=== PATIENT | female | born 1965 | race Caucasian/White ===

== ENCOUNTER 2018-06-10 06:15 | Day surgery (SDC) | payer BC ==
[2018-06-10] MEDS ORDERED: LACTATED RINGERS 1,000 ML ONE (06:54)
[2018-06-10] MEDS ORDERED: PROPOFOL 200 MG/20 ML VIAL IV ONE (07:00)
[2018-06-10] MEDS ORDERED: LIDOCAINE 1% 10 ML VIAL INJ ONE (07:00)
[2018-06-10] MEDS ORDERED: fentaNYL CITRATE INJ 50 MCG/ML AMP ONE (08:14)
[2018-06-10 08:55] VITALS: BP 102/66; TEMP 96.4; O2SAT 92
--- NOTE | 2018-06-10 09:01 | OP ---
DATE OF PROCEDURE: 06/10/18 PREOPERATIVE DIAGNOSIS: 1. Colorectal cancer screening in average risk individual. POSTOPERATIVE DIAGNOSIS: 1. Colonic polyps. 2. Internal hemorrhoids. PROCEDURE: 1. Colonoscopy with polypectomy. SURGEON: Rusty Diane MD ANESTHESIA: Monitored anesthesia care. LAST COLONOSCOPY: No prior colonoscopy. ESTIMATED BLOOD LOSS: Less than 5 mL. COMPLICATIONS: None. PROCEDURE: The patient was placed in the left lateral decubitus position. A time-out was performed. After deep sedation was achieved, the adult Olympus colonoscope was inserted through the anus and into the rectum and advanced to the cecum without difficulty under direct visualization. The terminal ileum was intubated. The cecum was identified by the ileocecal valve and the appendiceal orifice, photodocumentation of each location was performed. Retroflexion was performed in the right colon and cecum. The endoscope was then progressively withdrawn and the total colonic lumen evaluated. Retroflexion was performed in the rectum. The endoscope was then withdrawn and the procedure terminated. The patient tolerated the procedure well with no immediate complications. FINDINGS: 1. One sessile polyp measuring 5 mm was seen in the transverse colon. This polyp was removed with the cold snare and retrieved for pathology. 2. One sessile polyp measuring 4 mm was seen in the descending colon. This polyp was completely removed with the cold snare and retrieved for pathology. 3. One sessile polyp was seen in the sigmoid colon measuring 3 mm. This polyp was removed with a cold snare and retrieved for pathology. 4. Grade 2 non-bleeding internal hemorrhoids were seen in the rectum upon retroflexion. IMPRESSION: 1. Colonic polyps status post polypectomies. 2. Non-bleeding internal hemorrhoids. RECOMMENDATIONS: 1. Okay to discharge home once the patient meets discharge criteria. 2. Resume prior diet. 3. Resume home medications. 3. Repeat colonoscopy in 3 to 5 years depending on pathology results. 4. Followup with referring physician as needed. #[id number] MTDD
== END 2018-06-10 09:15 | disposition home or self-care (01) ==
LOC: AMB 06:15 → EDSTATUS 10:26
PROVIDERS: ATTEND Internal Medicine Gastroenterology
DX: Z12.11 Encounter for screening for malignant neoplasm of colon (principal); D12.3 Benign neoplasm of transverse colon; D12.4 Benign neoplasm of descending colon; D12.5 Benign neoplasm of sigmoid colon; K64.1 Second degree hemorrhoids; E66.9 Obesity, unspecified; Z88.5 Allergy status to narcotic agent; Z88.8 Allergy status to other drugs, medicaments and biological substances
CPT/HCPCS: 00812; 45385; J3010; J3490; J7120

== ENCOUNTER 2019-04-05 10:11 | Emergency (ER) | payer BC ==
[2019-04-05] MEDS ORDERED: ONDANSETRON INJ 4 MG/2 ML VIAL IV ONE ×3 (10:43→13:48)
[2019-04-05] MEDS ORDERED: SODIUM CHLORIDE 0.9% 1000ML 1,000 ML IVS ONE ×2 (10:43→14:03)
--- NOTE | 2019-04-05 10:47 | ED.PDOC ---
History of Present Illness - General Chief Complaint: GI Problem Stated Complaint: vomiting Time Seen by Provider: 04/05/19 10:35 Information Source: patient, family - History of Present Illness Initial Comments: 53 yo F with PMH sig for HLD who presents for diarrhea onset 12 days ago, nausea and NB vomiting onset this morning with associated epigastric pain, pain is constant, non radiating, onset 12 days ago. Hx of gastric ulcer at 15 yr old, determined to be from "a hard home life." Reports todays pain does not feel similar. Only abd surgery has been partial hysterectomy. Pt was seen by PCP and given shot of phenergan and sent home without prescriptions, sx continued. They did obtain stool studies however pt states they called a couple of days ago and still did not have the results. Today she felt so ill and with generalized weakness, she presented to ED. Denies sick contacts, recent travel. Denies f/c, cough, CP, SOB, melena, hematochezia. Review of Systems - Review of Systems Constitutional: Denies: chills, fever EENTM: States: no symptoms reported Respiratory: Denies: cough, short of breath Cardiology: Denies: chest pain, edema, palpitations Gastrointestinal/Abdominal: States: abdominal pain, diarrhea, nausea, vomiting, other - Denies hematemsis, melena, hematochezia.. Denies: constipation Genitourinary: Denies: dysuria, frequency, hematuria Musculoskeletal: Denies: back pain, neck pain Skin: Denies: change in color, rash Neurological: States: weakness - generalized weakness. Denies: numbness Hematologic/Lymphatic: Denies: easy bleeding, easy bruising Past Medical History (General) - Patient Medical History Hx Stroke: No Hx Congestive Heart Failure: Yes Hx Diabetes: No Hx MRSA: No Surgical History: tonsillectomy, Hysterectomy - Vaccination History Hx Tetanus, Diphtheria Vaccination: Yes Hx Influenza Vaccination: No - Social History Hx Tobacco Use: No Family Medical History - Family History Mother Brother Family History: Unknown Physical Exam - Physical Exam General Appearance: Well Developed, Well Nourished Eyes, Ears, Nose, Throat Exam: other - Dry. No scleral icterus. Neck: full range of motion, supple Respiratory: lungs clear, normal breath sounds, no respiratory distress, no accessory muscle use Cardiovascular/Chest: normal peripheral pulses, regular rate, rhythm, no edema, no gallop, no JVD, no murmur Peripheral Pulses: No deficit Gastrointestinal/Abdominal: soft, no organomegaly, no pulsatile mass - Epigastric TTP. No distention, rebound, gaurding, hernia. Extremity: normal range of motion, no pedal edema Neurologic: no motor/sensory deficits, oriented x 3 Skin Exam: other - No rash., pallor Progress - Progress Progress: 04/05/19 11:35 Rechecked, doing well. Nausea and pain improved but still present, will give more zofran and a dose of toradol. 04/05/19 12:35 Pt reports she is feeling much better, will try and obtain stool sample results from [facility]. LFT's still pending. CT scan consistent with diarrheal state. 04/05/19 13:49 Pt complaining on 9 pain and nausea, will give morphine and zofran. Discussed with lab, LFT's will not result for 2 hours however c diff will only take 30 min. 04/05/19 14:02 Discussed with pt results thus far. Offered admission, pt declines and would like to be d/c. In that case, discussed need to wait for LFT and c diff results. Pt and family agree with plan. 04/05/19 17:23 I have explained and reviewed all results with the pt. Pain well controlled, mansoor po. Pt anxious for d/c, pt and feel comfortable with d/c home. I explained that emergent conditions may arise and to return to the ER for new, worsening, or any persistent conditions. I've explained the importance of f/u for recheck. All questions and concerns addressed at this time. Pt understands and agrees with plan. Pt well appearing, NAD, is stable for discharge. Coleen Harris MD Emergency Medicine Physician Billing Number [id number] - Results/Orders Results/Orders: Outside stool sample: Negatice for shiga toxin, E coli, Salmonella and shigella. 04/05/19 10:44 Hold Metformin x 48Hrs [id number] 04/05/19 10:45 EKG STAT 04/05/19 13:10 STOOL CULTURE Stat 04/05/19 13:41 CRYPTOSPORIDIA AG,STOOL Stat NOROVIRUS,EIA STOOL Stat Laboratory Results - last 24 hr 04/05/19 04/05/19 04/05/19 10:40 10:40 11:15 WBC 17.0 H RBC 5.64 H Hgb 16.3 H Hct 50.2 H MCV 88.9 MCH 28.8 MCHC 32.4 L RDW 14.5 Plt Count 281 MPV 8.9 Absolute Neuts (auto) 14.60 H Absolute Lymphs (auto) 1.90 Absolute Monos (auto) 0.30 Absolute Eos (auto) 0.10 Absolute Basos (auto) 0.10 Neutrophils % 85.8 H Lymphocytes % 11.2 L Monocytes % 2.0 Eosinophils % 0.4 L Basophils % 0.6 Sodium 138 Potassium 3.5 L Chloride 98 L Carbon Dioxide 24 Anion Gap Cancelled BUN 8 Creatinine 0.60 BUN/Creatinine Ratio Cancelled Random Glucose 70 Serum Osmolality Cancelled Calcium Cancelled Total Bilirubin < 0.2 L Direct Bilirubin 0.1 Indirect Bilirubin 0.1 L AST 24 ALT 26 Alkaline Phosphatase 106 Serum Total Protein 8.3 H Albumin 4.6 Globulin Cancelled Albumin/Globulin Ratio Cancelled Lipase 37 Urine Color Yellow Urine Appearance Clear Urine pH 5.0 Ur Specific [place] >= 1.030 Urine Protein Negative Urine Glucose (UA) Negative Urine Ketones Negative Urine Blood Trace-lysed H Urine Nitrite Negative Urine Bilirubin Negative Urine Urobilinogen 0.2 Ur Leukocyte Esterase Negative Urine RBC 0-1 Urine WBC 1-3 Ur Epithelial Cells 1-3 Amorphous Sediment Trace Urine Bacteria 1+ Urine Mucus Trace EXAM DESCRIPTION: CT ABDOMEN AND PELVIS WITH CONTRAST CLINICAL HISTORY: abd pain COMPARISON: None Available. TECHNIQUE: CT of the abdomen and pelvis are performed during IV bolus administration of routine adult dose of nonionic iodinated IV contrast. No oral contrast. FINDINGS: In the lower chest, the lung bases are clear. Heart size is normal. CT abdomen The liver, spleen, pancreas, gallbladder, adrenal glands, stomach and kidneys are normal in appearance. No inflammation around the pancreas. No renal stones or hydronephrosis. The amount of fluid in the small bowel is prominent although the bowel does not appear pathologically dilated to suggest obstruction. There is fluid throughout the colon which may indicate diarrheal illness or recent enema administration. Clinical correlation recommended. No free air or free fluid. CT pelvis Appendix appears normal. No inflammation around the cecum or terminal ileum or sigmoid colon. Fluid filled colon and rectum. Bladder and distal ureters are negative for stones. Normal enhancement of pelvic vessels. No inguinal or lower pelvic adenopathy. Uterus and right ovary are surgically absent. Left ovary is not enlarged. Bone window images are negative for fracture or lytic lesion. Coronal and sagittal reformatted images confirm the findings. IMPRESSION: Increased fluid in the small bowel and colon. See above. This exam was performed according to our departmental dose-optimization program, which includes automated exposure control, adjustment of the mA and/or kV according to patient size and/or use of iterative reconstruction technique. Total DLP equals 1078.98 mGycm. Electronically signed by: Adolph Lezama MD 04/05/2019 12:15 PM CDT - EKG/XRAY/CT EKG: Sinus, no ST T wave changes Comments: NSR, rate 80 Departure - Departure Clinical Impression: Nausea vomiting and diarrhea Abdominal pain Qualifiers: Abdominal location: generalized Qualified Code(s): R10.84 - Generalized abdominal pain Time of Disposition: 17:10 Disposition: Discharge to Home or Self Care Health Concerns: Condition: Stable Departure Forms: ED Discharge - Pt. Copy, Patient Portal Self Enrollment Instructions: DI for Abdominal Pain-Adult, Viral Gastroenteritis, Adult (DC) Referrals: REBECCA JACOBO MD [Primary Care Provider] - 1-2 Days Prescriptions: Ondansetron Tab [Zofran Tab] 4 mg PO Q6HR PRN #12 tab PRN Reason: Nausea RX: Ciprofloxacin 500 mg PO BID 5 Days #10 arley metroNIDAZOLE [Flagyl] 500 mg PO TID 5 Days #15 tab Home Medications: Ambulatory Orders Acetaminophen [Tylenol] 500 mg PO PRN PRN 06/09/18 Cetirizine-Pseudoephedrine [Zyrtec-D Allergy/[place]] 1 tab PO PRN PRN 06/09/18 Ibuprofen [Advil] 400 mg PO PRN PRN 06/09/18 Ondansetron Tab [Zofran Tab] 4 mg PO Q6HR PRN #12 tab 04/05/19 RX: Ciprofloxacin 500 mg PO BID 5 Days #10 arley 04/05/19 metroNIDAZOLE [Flagyl] 500 mg PO TID 5 Days #15 tab 04/05/19 Additional Instructions: Follow up: [facility] As needed, if symptoms worsen Gastroenterology Make appointment, two days, for follow up
[2019-04-05 11:34] VITALS: TEMP 96.4
[2019-04-05] MEDS ORDERED: KETOROLAC TROMETHAMINE INJ 30 MG/ML VIAL IV ONE (11:34)
--- NOTE | 2019-04-05 12:16 | CT ---
EXAM DESCRIPTION: CT ABDOMEN AND PELVIS WITH CONTRAST CLINICAL HISTORY: abd pain COMPARISON: None Available. TECHNIQUE: CT of the abdomen and pelvis are performed during IV bolus administration of routine adult dose of nonionic iodinated IV contrast. No oral contrast. FINDINGS: In the lower chest, the lung bases are clear. Heart size is normal. CT abdomen The liver, spleen, pancreas, gallbladder, adrenal glands, stomach and kidneys are normal in appearance. No inflammation around the pancreas. No renal stones or hydronephrosis. The amount of fluid in the small bowel is prominent although the bowel does not appear pathologically dilated to suggest obstruction. There is fluid throughout the colon which may indicate diarrheal illness or recent enema administration. Clinical correlation recommended. No free air or free fluid. CT pelvis Appendix appears normal. No inflammation around the cecum or terminal ileum or sigmoid colon. Fluid filled colon and rectum. Bladder and distal ureters are negative for stones. Normal enhancement of pelvic vessels. No inguinal or lower pelvic adenopathy. Uterus and right ovary are surgically absent. Left ovary is not enlarged. Bone window images are negative for fracture or lytic lesion. Coronal and sagittal reformatted images confirm the findings. IMPRESSION: Increased fluid in the small bowel and colon. See above. This exam was performed according to our departmental dose-optimization program, which includes automated exposure control, adjustment of the mA and/or kV according to patient size and/or use of iterative reconstruction technique. Total DLP equals 1078.98 mGycm. Electronically signed by: Adolph Lezama MD 04/05/2019 12:15 PM CDT
[2019-04-05] MEDS ORDERED: MORPHINE SULFATE INJ 10 MG/ML VIAL IV ONE (13:48)
[2019-04-05 16:45] VITALS: O2SAT 94
[2019-04-05 17:34] VITALS: BP 114/64
== END 2019-04-05 17:35 | disposition home or self-care (01) ==
LOC: ER 10:11
DX: R19.7 Diarrhea, unspecified (principal); R11.2 Nausea with vomiting, unspecified; R10.84 Generalized abdominal pain; I50.9 Heart failure, unspecified; Z87.11 Personal history of peptic ulcer disease; Z90.79 Acquired absence of other genital organ(s)
CPT/HCPCS: 74177; 80048; 80076; 81001; 83690; 85025; 87015; 87045; 87046; 87272; 87324; 87449; 93005; J1885; J2270; J2405; J7030

== ENCOUNTER 2020-05-21 16:21 | Emergency (ER) | payer BC, OTHER ==
--- NOTE | 2020-05-21 17:35 | RAD ---
EXAM DESCRIPTION: Hand,Left 3 Views CLINICAL HISTORY: fall 3 days ago with pain COMPARISON: None FINDINGS: AP, lateral and oblique views of the left hand were submitted. There is no discrete acute fracture or dislocation. Bone mineralization is within normal limits. There is no radiopaque foreign body material IMPRESSION: No acute fracture or dislocation Electronically signed by: Richardson Pichardo MD 05/21/2020 5:34 PM [facility]
--- NOTE | 2020-05-21 17:36 | RAD ---
EXAM DESCRIPTION: Hip, left 2 Views (accession [id number]), Pelvis (accession [id number]) CLINICAL HISTORY: 55 years Female fall 3 days ago with pain COMPARISON: None. TECHNIQUE: AP pelvis and two views of the left hip. FINDINGS: No acute fractures or dislocations are identified. No osseous destructive lesions. There are surgical clips in the left pelvis. IMPRESSION: No acute fracture is identified. CT or MRI could be obtained to better evaluate if there is continued clinical concern. Electronically signed by: Fidencio Segovia MD 05/21/2020 5:34 PM [facility]
--- NOTE | 2020-05-21 17:36 | RAD ---
EXAM DESCRIPTION: Hip, left 2 Views (accession [id number]), Pelvis (accession [id number]) CLINICAL HISTORY: 55 years Female fall 3 days ago with pain COMPARISON: None. TECHNIQUE: AP pelvis and two views of the left hip. FINDINGS: No acute fractures or dislocations are identified. No osseous destructive lesions. There are surgical clips in the left pelvis. IMPRESSION: No acute fracture is identified. CT or MRI could be obtained to better evaluate if there is continued clinical concern. Electronically signed by: Fidencio Segovia MD 05/21/2020 5:34 PM [facility]
--- NOTE | 2020-05-21 17:41 | RAD ---
EXAM DESCRIPTION: Knee,Left Complete CLINICAL HISTORY: fall 3 days ago with pain COMPARISON: None FINDINGS: AP, lateral and oblique views of the left knee were submitted. There is subtle cortical irregularity involving the lateral aspect of the lateral tibial epicondyles, uncertain acuity no other acute bony abnormality detected. Bone mineralization is within normal limits. There is no suprapatellar joint fluid collection IMPRESSION: Subtle age-indeterminate irregularity along the posterior lateral at the left tibial condyle. Small avulsion fracture of the lateral capsular ligament is a concern. Recommend MRI for additional characterization for possible internal derangement. Electronically signed by: Richardson Pichardo MD 05/21/2020 5:40 PM [facility]
--- NOTE | 2020-05-21 17:42 | RAD ---
EXAM DESCRIPTION: Scapula,Left CLINICAL HISTORY: 55 years Female fall 3 days ago with pain COMPARISON: None. TECHNIQUE: LEFT SCAPULA two view FINDINGS: No acute fractures or dislocations identified. No osseous destructive lesions. Acromioclavicular joint appears maintained. IMPRESSION: No acute fracture or dislocation identified. Electronically signed by: Luz Elena Segovia MD 05/21/2020 5:40 PM [facility]
--- NOTE | 2020-05-21 17:43 | RAD ---
EXAM DESCRIPTION: Shoulder,Left 2 or More Views CLINICAL HISTORY: 55 years Female fall 3 days ago with pain COMPARISON: None. TECHNIQUE: LEFT SHOULDER two view FINDINGS: No acute fractures or dislocations identified. No osseous destructive lesions. Acromioclavicular joint appears maintained. IMPRESSION: No acute fracture or dislocation identified. Electronically signed by: Luz Elena Segovia MD 05/21/2020 5:41 PM [facility]
[2020-05-21 18:07] VITALS: BP 136/80
--- NOTE | 2020-05-21 18:27 | CT ---
EXAM DESCRIPTION: Lower Extremity CLINICAL HISTORY: 55 years Female left knee, xray irreg tib COMPARISON: None. TECHNIQUE: Contiguous axial CT images obtained through the left knee without IV contrast. Reformatted images obtained. This exam was performed according to our department optimization program which includes automated exposure control, adjustment of the mA and/or kv according to patient size and/or use of iterative reconstruction technique. FINDINGS: Mild lateral patellar tilt. No acute fracture. No joint effusion. Small area along the lateral aspect of the tibial metaphysis described on the plain films appears to represent an area of normal bony architecture. IMPRESSION: No acute abnormality identified. Electronically signed by: Luz Elena Segovia MD 05/21/2020 6:26 PM [facility]
--- NOTE | 2020-05-21 18:36 | ED.PDOC ---
History of Present Illness - General Chief Complaint: Trauma Stated Complaint: L shoulder, L hip and L knee pain r/t fall Time Seen by Provider: 05/21/20 16:33 Source: patient Exam Limitations: no limitations - History of Present Illness Initial Comments: The patient is a 55-year-old female presents emergency room secondary to left- sided pain from a fall that she sustained. Apparently the patient was unloading boxes and her pants snagged on a palate then she fell backwards and to the left, trying to catch herself with her arm. The patient has pain in the left shoulder, the left thumb, the left hip and the left knee. There are no palpable deformities. Range of motion appears grossly preserved though there is pain with movement of the left knee hip and shoulder. She has tenderness to palpation over the left acromioclavicular joint. She has to palpation over the supraspinatus and infraspinatus muscles on the left clavicle. She has mild tenderness to palpation over the lateral pectoralis muscle. No visible bruising in this area. Active and passive range of motion are preserved though active range of motion does cause some pain. X-ray left hip shows full range of motion. There is mostly discomfort to palpation over the area of impact. Strength is preserved here. Examination of left knee shows tenderness to palpation of the lateral aspect. There is not appear to be any laxity of the knee joint itself and no exacerbation of pain with testing of the ligaments. There is mild bruise to the lateral aspect. Strength appears to be grossly preserved. She appears to be neurovascularly at her baseline distally. Timing/Duration: other - About 3 days Severity: moderate Improving Factors: immobilization Worsening Factors: movement Associated Symptoms: denies symptoms Allergies/Adverse Reactions: Allergies Cephalexin Allergy (Verified 06/09/18 11:20) Codeine Allergy (Verified 06/09/18 11:20) Tetanus Toxoids Allergy (Verified 05/21/20 16:52) Home Medications: Ambulatory Orders Acetaminophen [Tylenol] 500 mg PO PRN PRN 06/09/18 Cetirizine-Pseudoephedrine [Zyrtec-D Allergy/Congesti] 1 tab PO PRN PRN 06/09/18 Ibuprofen [Advil] 400 mg PO PRN PRN 06/09/18 Cyclobenzaprine HCl [Flexeril] 5 mg PO TID PRN #20 tab 05/21/20 Furosemide Tab [Lasix Tab] 40 mg PO PRN PRN 05/21/20 predniSONE [Prednisone] 20 mg PO DAILY #5 tab 05/21/20 Review of Systems - Review of Systems Constitutional: States: no symptoms reported EENTM: States: no symptoms reported Respiratory: States: no symptoms reported Cardiology: States: no symptoms reported Gastrointestinal/Abdominal: States: no symptoms reported Genitourinary: States: no symptoms reported Musculoskeletal: States: see HPI Skin: States: no symptoms reported Neurological: States: no symptoms reported Endocrine: States: no symptoms reported Hematologic/Lymphatic: States: no symptoms reported All other Systems: No Change from Baseline Past Medical History (General) - Patient Medical History Hx Stroke: No Hx of COPD: No Hx Cardiac Disorders: No Hx Congestive Heart Failure: Yes Hx Hypertension: No Hx Diabetes: No Hx Cancer: No Hx MRSA: No Surgical History: Hysterectomy, other - Vaccination History Hx Tetanus, Diphtheria Vaccination: Yes Hx Influenza Vaccination: No Hx Pneumococcal Vaccination: No - Social History Hx Tobacco Use: No Hx Alcohol Use: Yes Hx Substance Use: No Hx Substance Use Treatment: No Hx Depression: No - Female History Patient is a Female of Child Bearing Age (10 -59 yrs old): Yes Patient : No Family Medical History - Family History Mother Brother Family History: Unknown Hx Family Hypertension: Yes Hx Family Diabetes: Yes Physical Exam - Physical Exam General Appearance: Alert, No apparent distress Eye Exam: bilateral normal Ears, Nose, Throat: hearing grossly normal, normal pharynx Neck: non-tender, full range of motion Respiratory: no respiratory distress, no accessory muscle use Cardiovascular/Chest: normal peripheral pulses, no edema Peripheral Pulses: radial,right: 2+, radial,left: 2+, dorsalis pedis,right: 2+, dorsalis pedis,left: 2+ Gastrointestinal/Abdominal: non tender, soft Rectal Exam: deferred Back Exam: no CVA tenderness, no vertebral tenderness, other - See history of present illness Extremity: normal range of motion, no pedal edema, no calf tenderness, normal capillary refill, other - See history of present illness 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 The patient has primarily sustained myofascial strain of the left shoulder including the supraspinatus and infraspinatus muscles on the left. Additionally there is a mild strain of the lateral pectoralis muscle. She also appears to have strained the left acromioclavicular joint. No evidence of fracture or dislocation. The patient also appears to have bruised the left hip and the left knee with the fall. X-rays are reassuring. The patient does need to do light duty over the coming week to prevent further injury to herself. The patient will be written for a low-dose muscle relaxer as well as oral steroid to help reduce inflammation. She can use [id number] anti-inflammatories as well. Paperwork has been filled out for her work. ER warnings are given. flor nickerson [phone] - Results/Orders Results/Orders: X-ray of the left hip, pelvis, and left hand, left scapula, left shoulder are negative. X-ray of the knee shows a possible loose calcified body that could indicate a small fracture. CT scan of the knee without contrast showed no evidence of any acute pathology. Departure - Departure Clinical Impression: Fall Qualifiers: Encounter type: initial encounter Qualified Code(s): W19.XXXA - Unspecified fall, initial encounter Left shoulder strain Qualifiers: Encounter type: initial encounter Qualified Code(s): S46.912A - Strain of unspecified muscle, fascia and tendon at shoulder and upper arm level, left arm, initial encounter Superficial bruising of hip Qualifiers: Encounter type: initial encounter Traumatic ecchymosis of knee Qualifiers: Encounter type: initial encounter Laterality: left Qualified Code(s): S80.02XA - Contusion of left knee, initial encounter Disposition: Discharge to Home or Self Care Condition: Fair Departure Forms: ED Discharge - Pt. Copy, Patient Portal Self Enrollment Instructions: DI for Trauma, Shoulder Pain (DC) Diet: regular diet Activity: other Referrals: Charles Nickerson MD [Primary Care Provider] - 1-2 Weeks Prescriptions: Cyclobenzaprine HCl [Flexeril] 5 mg PO TID PRN #20 tab PRN Reason: Muscle Spasms predniSONE [Prednisone] 20 mg PO DAILY #5 tab Home Medications: Ambulatory Orders Acetaminophen [Tylenol] 500 mg PO PRN PRN 06/09/18 Cetirizine-Pseudoephedrine [Zyrtec-D Allergy/Congesti] 1 tab PO PRN PRN 06/09/18 Ibuprofen [Advil] 400 mg PO PRN PRN 06/09/18 Cyclobenzaprine HCl [Flexeril] 5 mg PO TID PRN #20 tab 05/21/20 Furosemide Tab [Lasix Tab] 40 mg PO PRN PRN 05/21/20 predniSONE [Prednisone] 20 mg PO DAILY #5 tab 05/21/20 Additional Instructions: The patient is a 55-year-old female that fell around 3 days ago while at work. The patient has primarily sustained myofascial strain of the left shoulder including the supraspinatus and infraspinatus muscles on the left. Additionally there is a mild strain of the lateral pectoralis muscle. She also appears to have strained the left acromioclavicular joint. No evidence of fracture or dislocation. The patient also appears to have bruised the left hip and the left knee with the fall. X-rays are reassuring. The patient does need to do light duty over the coming week to prevent further injury to herself. The patient will be written for a low-dose muscle relaxer as well as oral steroid to help reduce inflammation. She can use [id number] anti-inflammatories as well. Range of motion exercises and topical heat may also prove beneficial symptomatically. Paperwork has been filled out for her work. ER warnings are given.
[2020-05-21] MEDS ORDERED: CYCLOBENZAPRINE HCL 10 MG TAB PO ONE (18:54)
[2020-05-21] MEDS ORDERED: predniSONE 20 MG TAB PO ONE (18:54)
[2020-05-21 18:56] VITALS: TEMP 97.4; O2SAT 98
== END 2020-05-21 18:58 | disposition home or self-care (01) ==
LOC: ER 16:21
DX: S46.912A Strain of unspecified muscle, fascia and tendon at shoulder and upper arm level, left arm, initial encounter (principal); S80.02XA Contusion of left knee, initial encounter; S70.02XA Contusion of left hip, initial encounter; I50.9 Heart failure, unspecified; W18.39XA Other fall on same level, initial encounter; Z79.899 Other long term (current) drug therapy; Z88.7 Allergy status to serum and vaccine; Y99.0 Civilian activity done for income or pay; Z88.1 Allergy status to other antibiotic agents; Z88.5 Allergy status to narcotic agent; Y92.9 Unspecified place or not applicable
CPT/HCPCS: 72170; 73010; 73030; 73130; 73502; 73562; 73700; J7512

== ENCOUNTER → 2020-06-22 | Outpatient (CLI) | payer BC | LOC: GMALS 10:36 | PROVIDERS: ATTEND Nurse Practitioner Acute Care | DX: E34.8 Other specified endocrine disorders (principal); I10 Essential (primary) hypertension; R53.83 Other fatigue ==